=== PATIENT | male | born 1960 | race African-American/Black ===

== ENCOUNTER 2017-04-25 20:26 | Emergency (ER) | payer OTHER ==
[~2017-04-25] VITALS: Ht 172.7 cm; Wt 93.0 kg
[2017-04-25 20:34] VITALS: BP 148/86
--- NOTE | 2017-04-25 22:08 | NUR ---
pt resting in bed, breathing loudly even chest rise/fall, nad noted
== END 2017-04-25 22:16 | disposition home or self-care (01) ==
LOC: ER 20:33
DX: M25.512 Pain in left shoulder (principal); E11.9 Type 2 diabetes mellitus without complications; I10 Essential (primary) hypertension
CPT/HCPCS: 73030-TC; A4606; Z7610